=== PATIENT | female | born 1985 | race Two or more races ===

== ENCOUNTER 2019-04-01 23:32 | Emergency (ER) | payer MEDICAID ==
[~2019-04-01] VITALS: Ht 167.6 cm; Wt 61.7 kg
[2019-04-01 23:41] VITALS: BP 98/51; Ht 167.6 cm; Wt 61.7 kg
== END 2019-04-02 01:15 | disposition home or self-care (01) ==
LOC: ED 23:32
DX: B34.9 Viral infection, unspecified (principal); J40 Bronchitis, not specified as acute or chronic